=== PATIENT | male | born 1965 | race Caucasian/White ===

== ENCOUNTER 2019-06-02 15:15 | Emergency (ER) | payer OTHER ==
[~2019-06-02] VITALS: Ht 182.8 cm; Wt 103.9 kg
[~2019-06-02 15:15] MED LIST: BACTRIM DS 8001 TA1 PO; Bactroban Oint22 GM T
[2019-06-02 16:14] LABS: BASO # 0.1 10*3/uL (0.0-0.1); BASO % 0.9 % (0.0-1.0); EOS # 0.3 10*3/uL (0.0-0.4); EOS % 4.7 % (1.0-4.0); HEMATOCRIT 43.3 % (42.0-52.0); HEMOGLOBIN 14.6 g/dl (14.0-18.0); LYMPH # 1.3 10*3/uL (1.3-4.4); LYMPH % 23.3 % (27.0-41.0); MEAN CELL VOLUME 93.3 fl (80.0-94.0); MEAN CORPUSCULAR HGB 31.5 pg (27.0-31.0); MEAN CORPUSCULAR HGB CONC 33.7 g/dl (33.0-37.0); MONO # 0.5 10*3/uL (0.1-1.0); MONO % 8.3 % (3.0-9.0); NEUT # 3.5 10*3/uL (2.3-7.9); NEUT % 62.4 % (47.0-73.0); PLATELET COUNT AUTOMATED 218 10*3/uL (130-400); RED BLOOD COUNT 4.64 10*6/uL (4.50-5.90); WHITE BLOOD COUNT 5.5 10*3/uL (4.8-10.8)
[2019-06-02 16:26] LABS: BUN 8 mg/dl (7-24); CHLORIDE 106 mmol/L (98-107); CREATININE 0.88 mg/dL (0.70-1.30); POTASSIUM 4.1 mmol/L (3.5-5.1); SODIUM 138 mmol/L (136-145)
[2019-06-02 16:28] LABS: INTERNATIONAL NORM RATIO 0.9 (2.0-3.5)
[2019-06-02] MEDS ORDERED: KEFLEX500 M1 PO (18:49)
== END 2019-06-02 18:59 | disposition home or self-care (01) ==
LOC: ED 15:15
PROVIDERS: Nurse Practitioner
DX: L03.116 Cellulitis of left lower limb (principal); R79.1 Abnormal coagulation profile; Z88.8 Allergy status to other drugs, medicaments and biological substances